=== PATIENT | male | born 1935 | race Caucasian/White ===

== ENCOUNTER 2021-06-27 08:51 | Emergency (ER) | payer MEDICARE ==
[~2021-06-27] VITALS: Ht 180.3 cm; Wt 77.6 kg
[2021-06-27 09:16] LABS: BILIRUBIN Negative (Negative); BLOOD Trace-Intact (Negative); CLARITY Turbid (Clear); COLOR Yellow (Yellow); GLUCOSE Negative (Negative); KETONE Trace (Negative); LEUKO ESTERASE 3+ (Negative); NITRITE Negative (Negative); PH 5.5 (4.5-8.0)
[2021-06-27 09:31] LABS: BASO % 0.2 % (0.0-1.0); EOS # 0.2 10*3/uL (0.0-0.4); EOS % 2.4 % (1.0-4.0); HEMATOCRIT 32.9 % (42.0-52.0); LYMPH # 0.9 10*3/uL (1.3-4.4); LYMPH % 9.7 % (27.0-41.0); MEAN CELL VOLUME 89.9 fl (80.0-94.0); MEAN CORPUSCULAR HGB 30.1 pg (27.0-31.0); MEAN CORPUSCULAR HGB CONC 33.4 g/dl (33.0-37.0); MEAN PLATELET VOLUME 9.9 fl (9.6-12.3); MONO # 0.7 10*3/uL (0.1-1.0); MONO % 7.6 % (3.0-9.0); NEUT # 7.6 10*3/uL (2.3-7.9); NEUT % 79.8 % (47.0-73.0); PLATELET COUNT AUTOMATED 211 10*3/uL (130-400); RED BLOOD COUNT 3.66 10*6/uL (4.50-5.90); RED CELL DISTRI WIDTH 12.8 % (0-14.5); WHITE BLOOD COUNT 9.5 10*3/uL (4.8-10.8)
[2021-06-27 09:33] LABS: BACTERIA 4+; WBC TNTC wbc/hpf (0-5)
[2021-06-27 09:41] LABS: ACT PARTIAL THROMBO TIME 28.9 SECONDS (20.0-32.1)
[2021-06-27 09:52] LABS: ALKALINE PHOSPHATASE 62 U/L (45-117); BUN 28 mg/dl (7-24); CHLORIDE 106 mmol/L (98-107); CPK 294 U/L (39-308); CREATININE 1.81 mg/dL (0.70-1.30); POTASSIUM 3.3 mmol/L (3.5-5.1); SGOT/AST 21 IU/L (3-35); SGPT/ALT 17 U/L (12-78); SODIUM 143 mmol/L (136-145); TOTAL PROTEIN 6.6 gm/dL (6.4-8.2)
[2021-06-27] MEDS ORDERED: AMLODIPINE BESYL5 MG PO (10:09)
[2021-06-27] MEDS ORDERED: LASIX20 MG PO (10:10)
[2021-06-27] MEDS ORDERED: NEURONTIN300 MG PO (10:11)
[2021-06-27] MEDS ORDERED: GEMTESA75 MG PO (10:11)
[2021-06-27] MEDS ORDERED: LANSOPRAZOLE30 MG PO (10:12)
[2021-06-27] MEDS ORDERED: NORMODYNE,TRAN100 MG PO (10:12)
[2021-06-27] MEDS ORDERED: NAMENDA10 MG PO (10:13)
[2021-06-27] MEDS ORDERED: FLOMAX0.4 MG PO (10:13)
[2021-06-27] MEDS ORDERED: VITAMIN D325 MCG PO (10:16)
[2021-06-27] MEDS ORDERED: CEFUROXIME AXE250 MG PO (11:28)
== END 2021-06-27 12:25 ==
LOC: ED 08:51
PROVIDERS: Emergency Medicine
DX: I12.9 Hypertensive chronic kidney disease with stage 1 through stage 4 chronic kidney disease, or unspecified chronic kidney disease (principal); N18.9 Chronic kidney disease, unspecified; N39.0 Urinary tract infection, site not specified; F03.90 Unspecified dementia, unspecified severity, without behavioral disturbance, psychotic disturbance, mood disturbance, and anxiety; Z79.899 Other long term (current) drug therapy

== ENCOUNTER 2021-06-30 00:40 | Emergency (ER) | payer MEDICARE ==
[~2021-06-30 00:40] MED LIST: AMLODIPINE BESYL5 MG PO; CEFUROXIME AXE250 MG PO; FLOMAX0.4 MG PO; GEMTESA75 MG PO; LANSOPRAZOLE30 MG PO; LASIX20 MG PO; NAMENDA10 MG PO; NEURONTIN300 MG PO; NORMODYNE,TRAN100 MG PO; VITAMIN D325 MCG PO
== END 2021-06-30 02:20 ==
LOC: ED 00:40
DX: G30.9 Alzheimer's disease, unspecified (principal); F02.80 Dementia in other diseases classified elsewhere, unspecified severity, without behavioral disturbance, psychotic disturbance, mood disturbance, and anxiety; Z79.899 Other long term (current) drug therapy